=== PATIENT | female | born 1940 | race Caucasian/White ===

== ENCOUNTER 2017-04-18 20:37 | Inpatient (IN) | payer OTHER ==
[~2017-04-18] VITALS: Ht 152.4 cm; Wt 72.6 kg
[~2017-04-18 20:37] MED LIST: BACTROBAN OINT22 GM TP; BUSPAR15 MG PO; CARAFATE1 GM; CEFTIN250 MG PO; CELEXA10 MG; COUMADIN5 MG PO; COZAAR100 MG; CRESTOR10 MG PO; DESYREL150 MG PO; DOLOGEN CAPLET1 EACH PO; GAS RELIEF 8080 MG PO; HYZAAR 100-121 UDTAB PO; IMODIUM A-D2 MG PO; KLONOPIN0.125 MG/T PO; KLONOPIN1 MG/TAB; LAMICTAL25 MG; LEVSIN/SL0.125 MG PO; LEVSIN0.125 MG PO; MACRODANTIN PO; Mylicon 125MG PO; NEXIUM40 MG/PACK PO; PEPCID40 MG PO; PLAVIX75 MG; PLAVIX75 MG PO; PREDNISONE5 MG/DOSE- PO; PROTONIX40 MG PO; REMERON15 MG; SIMVASTATIN5 MG; SINGULAIR10 MG PO; SYNTHROID75 MCG PO; TIZANIDINE HCL2 MG PO; TRAMADOL HCL25 GM MC; TRILEPTAL600 MG PO; ULTRAM50 MG PO; ZANTAC300 MG PO; ZOFRAN4 MG PO
== END 2017-06-03 05:31 | disposition expired | DRG 393 ==
LOC: ER 20:37 → SEC-K 04-19 18:21 → SURH 04-21 15:57 → MEDI 04-21 15:57 → ICU 05-07 05:43
PROC: 3E0F7GC Introduction of Other Therapeutic Substance into Respiratory Tract, Via Natural or Artificial Opening (ICD-10-PCS; principal; 2017-04-19)
PROC: 4A033R1 Measurement of Arterial Saturation, Peripheral, Percutaneous Approach (ICD-10-PCS; 2017-04-20)
PROC: B246ZZZ Ultrasonography of Right and Left Heart (ICD-10-PCS; 2017-04-20)
PROC: 02HV33Z Insertion of Infusion Device into Superior Vena Cava, Percutaneous Approach (ICD-10-PCS; 2017-04-26)
PROC: BW21Y0Z Computerized Tomography (CT Scan) of Abdomen and Pelvis using Other Contrast, Unenhanced and Enhanced (ICD-10-PCS; 2017-04-26)
PROC: 3E0436Z Introduction of Nutritional Substance into Central Vein, Percutaneous Approach (ICD-10-PCS; 2017-04-26)
PROC: 4A12X4Z Monitoring of Cardiac Electrical Activity, External Approach (ICD-10-PCS; 2017-05-05)
PROC: 5A1955Z Respiratory Ventilation, Greater than 96 Consecutive Hours (ICD-10-PCS; 2017-05-07)
PROC: 0BH17EZ Insertion of Endotracheal Airway into Trachea, Via Natural or Artificial Opening (ICD-10-PCS; 2017-05-07)
PROC: B54DZZZ Ultrasonography of Bilateral Lower Extremity Veins (ICD-10-PCS; 2017-05-07)
PROC: 5A09357 Assistance with Respiratory Ventilation, Less than 24 Consecutive Hours, Continuous Positive Airway Pressure (ICD-10-PCS; 2017-06-02)
DX: K63.1 Perforation of intestine (nontraumatic) (principal); J96.02 Acute respiratory failure with hypercapnia; J69.0 Pneumonitis due to inhalation of food and vomit; K51.518 Left sided colitis with other complication; E27.49 Other adrenocortical insufficiency; J45.42 Moderate persistent asthma with status asthmaticus; E23.0 Hypopituitarism; E87.1 Hypo-osmolality and hyponatremia; J90 Pleural effusion, not elsewhere classified; B37.49 Other urogenital candidiasis; B37.0 Candidal stomatitis; I11.9 Hypertensive heart disease without heart failure; E11.65 Type 2 diabetes mellitus with hyperglycemia; E03.8 Other specified hypothyroidism; G30.8 Other Alzheimer's disease; F02.80 Dementia in other diseases classified elsewhere, unspecified severity, without behavioral disturbance, psychotic disturbance, mood disturbance, and anxiety; E78.00 Pure hypercholesterolemia, unspecified; F41.8 Other specified anxiety disorders; K29.60 Other gastritis without bleeding; M79.7 Fibromyalgia; I25.2 Old myocardial infarction; J44.9 Chronic obstructive pulmonary disease, unspecified; I35.0 Nonrheumatic aortic (valve) stenosis; Z86.73 Personal history of transient ischemic attack (TIA), and cerebral infarction without residual deficits; Z53.1 Procedure and treatment not carried out because of patient's decision for reasons of belief and group pressure; B96.5 Pseudomonas (aeruginosa) (mallei) (pseudomallei) as the cause of diseases classified elsewhere; R13.19 Other dysphagia; B96.1 Klebsiella pneumoniae [K. pneumoniae] as the cause of diseases classified elsewhere; Z78.1 Physical restraint status; K63.5 Polyp of colon